=== PATIENT | female | born 1990 | race African-American/Black ===

== ENCOUNTER 2017-08-07 08:43 | Emergency (ER) | payer OTHER ==
[~2017-08-07] VITALS: Ht 157.5 cm; Wt 74.4 kg
[~2017-08-07 08:43] MED LIST: ASPIRIN325; DOXYCYCLINE 10100 MG PO; IBUPROFEN 600600 M1 PO; IRON159 MG; KEFLEX500 M1 PO; NOHOMEMEDICATIONS; NORCO 5-325 TA1 EACH PO; PEPCID40 MG PO; PHENERGAN 25 MG25 M1 PO; PHENERGAN50 MG RC; PRENATAL; TUMS PO
[2017-08-07] MEDS ORDERED: TESSALON PERLE100 MG PO (09:48)
== END 2017-08-07 10:01 | disposition home or self-care (01) ==
LOC: ER 08:43
DX: R05 Cough (principal); R10.30 Lower abdominal pain, unspecified; Z91.018 Allergy to other foods